=== PATIENT | female | born 1995 | race Caucasian/White ===

== ENCOUNTER 2018-01-26 11:06 | Emergency (ER) | payer OTHER ==
[~2018-01-26] VITALS: Ht 172.7 cm; Wt 89.8 kg
--- NOTE | 2018-01-26 12:00 | ED GU-Female ---
General Chief Complaint: -Female Stated Complaint: PELVIC PAIN/BLEEDING Nursing Triage Note: Pt c/o heavy vaginal bleeding that began last night. Pt states no period for four months prior to this. Pt is changing tampons every two hours. Pt c/o sharp pain on the R sided that is unlike period cramping. Pt also c/o unusual thoughts. Pt denies being suicidal but has been questioning whether pt "needs to be on this earth." Pt denies self harm or having a plan. Nursing Sepsis Screen: No Definite Risk Source: patient Exam Limitations: no limitations History of Present Illness Date Seen by Provider: Jan 26, 2018 Time Seen by Provider: 11:13 Initial Comments Patient is a 22-year-old female who was sent over to the emergency room by [facility] for complaints of heavy vaginal bleeding that started last night at 4:00. She reports that she's not had a menstrual cycle for 4 months prior to this but she's had several negative tests. She reports changing her tampon every 2 hours throughout the night and right lower quadrant pelvic pain. She also reports that she's had confusing thoughts that started last night and a sense of her not needing to be alive anymore. She denies being suicidal, homicidal, any thoughts of harming herself. But just thinks that she "doesn't need to be on this earth". Timing/Duration: yesterday Severity/Quality: sharp Location: suprapubic Radiation: none Sexual [place] History: single partner Associated Symptoms: denies symptoms Allergies and Home Medications Patient Home Medication List Home Medication List Reviewed: Yes Review of Systems Review of Systems Constitutional: see HPI; No chills, No fever Genitourinary: see HPI, other (vaginal bleeding) Psychiatric/Neurological: See HPI, Emotional Problems All Other Systemes Reviewed Negative Unless Noted: Yes Past Xavzjkg-Lamrxk-Ygacbc Hx Past Med/Social Hx: Reviewed Nursing Past Med/Soc Hx Patient Social History Alcohol Use: Denies Use Recreational Drug Use: No Smoking Status: Current Someday Smoker Type Used: Cigarettes 2nd Hand Smoke Exposure: Yes Recent Foreign Travel: No Contact w/Someone Who Travel: No Recent Infectious Disease Expo: No Recent Hopitalizations: No Past Medical History Surgeries: No Respiratory: No Cardiac: No Neurological: No Last Menstrual Period: Jan 25, 2018 Genitourinary: No Gastrointestinal: No Musculoskeletal: No Endocrine: No HEENT: No Cancer: No Psychosocial: Yes Anxiety Integumentary: No Blood Disorders: No Adverse Reaction/Blood Tranf: No Family Medical History Reviewed Nursing Family Hx Physical Exam Vital Signs Vital Signs - First Documented 01/26/18 11:13 Temp 97.6 Pulse 80 Resp 20 B/P (MAP) 130/88 (102) Pulse Ox 98 O2 Delivery Room Air Capillary Refill : Less Than 3 Seconds Height, Weight, BMI Height: 5'8.00" Weight: 198lbs. oz. 89.874098nx; BMI Method:Stated General Appearance: WD/WN, no apparent distress Cardiovascular: normal peripheral pulses, regular rate, rhythm, no edema, no gallop, no JVD, no murmur Respiratory: chest non-tender, lungs clear, normal breath sounds, no respiratory distress, no accessory muscle use, respiratory distress Gastrointestinal: normal bowel sounds, non tender, soft, no organomegaly, no pulsatile mass, abnormal bowel sounds Pelvic: normal external exam, normal adnexa, no cerv. motion tender, no masses , vaginal bleeding (minimal amount of vaginal bleeding coming from her cervix. Cervix is nonfriable. Normal appearing cervix. Exam was completed with assistance from Rashmi GRIFFIN.) Neurologic/Psychiatric: alert, normal mood/affect, oriented x 3 Skin: normal color, warm/dry Progress/Results/Core Measures Suspected Sepsis Recent Fever Within 48 Hours: No Infection Criteria Present: None New/Unexplained Altered Menta: No Sepsis Screen: No Definite Risk SIRS Temperature:97.6 Pulse: 80 Respiratory Rate: 20 Laboratory Tests 01/26/18 11:51: White Blood Count 8.0 Blood Pressure 130 /88 Mean: 102 Laboratory Tests 01/26/18 11:51: Platelet Count 219 01/26/18 12:08: Creatinine 0.80, Total Bilirubin 0.6 Results/Orders Lab Results Laboratory Tests Test 01/26/18 11:51 01/26/18 12:08 01/26/18 12:56 Range/Units White Blood Count 8.0 4.3-11.0 10^3/uL Red Blood Count 4.13 L 4.35-5.85 10^6/uL Hemoglobin 12.9 11.5-16.0 G/DL Hematocrit 38 35-52 % Mean Corpuscular Volume 92 80-99 FL Mean Corpuscular Hemoglobin 31 25-34 PG Mean Corpuscular Hemoglobin Concent 34 32-36 G/DL Red Cell Distribution Width 12.6 10.0-14.5 % Platelet Count 219 130-400 10^3/uL Mean Platelet Volume 10.8 H 7.4-10.4 FL Neutrophils (%) (Auto) 68 42-75 % Lymphocytes (%) (Auto) 23 12-44 % Monocytes (%) (Auto) 7 0-12 % Eosinophils (%) (Auto) 2 0-10 % Basophils (%) (Auto) 0 0-10 % Neutrophils # (Auto) 5.5 1.8-7.8 X 10^3 Lymphocytes # (Auto) 1.8 1.0-4.0 X 10^3 Monocytes # (Auto) 0.6 0.0-1.0 X 10^3 Eosinophils # (Auto) 0.2 0.0-0.3 10^3/uL Basophils # (Auto) 0.0 0.0-0.1 10^3/uL Serum Test, Qualitative NEGATIVE NEGATIVE Urine Color RED H Urine Clarity BLOODY H Urine pH 5 5-9 Urine Specific [place] 1.020 1.016-1.022 Urine Protein 3+ H NEGATIVE Urine Glucose (UA) NEGATIVE NEGATIVE Urine Ketones 1+ H NEGATIVE Urine Nitrite NEGATIVE NEGATIVE Urine Bilirubin NEGATIVE NEGATIVE Urine Urobilinogen NORMAL NORMAL MG/DL Urine Leukocyte Esterase 1+ H NEGATIVE Urine RBC (Auto) 5+ H NEGATIVE Urine RBC TNTC H /HPF Urine WBC 2-5 /HPF Urine Squamous Epithelial Cells 2-5 /HPF Urine Crystals NONE /LPF Urine Bacteria TRACE /HPF Urine Casts NONE /LPF Urine Mucus NEGATIVE /LPF Urine Culture Indicated NO Sodium Level 137 135-145 MMOL/L Potassium Level 3.5 L 3.6-5.0 MMOL/L Chloride Level 104 98-107 MMOL/L Carbon Dioxide Level 22 21-32 MMOL/L Anion Gap 11 5-14 MMOL/L Blood Urea Nitrogen 8 7-18 MG/DL Creatinine 0.80 0.60-1.30 MG/DL Estimat Glomerular Filtration Rate > 60 BUN/Creatinine Ratio 10 Glucose Level 90 70-105 MG/DL Calcium Level 9.4 8.5-10.1 MG/DL Corrected Calcium 9.2 8.5-10.1 MG/DL Total Bilirubin 0.6 0.1-1.0 MG/DL Aspartate Amino Transf (AST/SGOT) 21 5-34 U/L Alanine Aminotransferase (ALT/SGPT) 24 0-55 U/L Alkaline Phosphatase 73 40-136 U/L Total Protein 7.4 6.4-8.2 GM/DL Albumin 4.3 3.2-4.5 GM/DL Micro Results Microbiology 01/26/18 Genital Culture, Resulted Pending 01/26/18 TIFFANIE Preparation - Final, Resulted 01/26/18 Wet Prep - Final, Resulted My Orders Orders - ERNIE SINGH Cbc With Automated Diff (01/26/18 11:23) Cbc No Diff (01/26/18 11:23) Hcg,Qualitative Serum (01/26/18 11:23) Ua Culture If Indicated (01/26/18 11:23) Wet Prep (01/26/18 11:23) Neisseria Gonorrhea Swab (01/26/18 11:23) Genital Culture (01/26/18 11:23) Tiffanie Prep (01/26/18 11:23) Chlamydia Trachomatis Swab (01/26/18 11:23) Comprehensive Metabolic Panel (01/26/18 12:08) Vital Signs/I&O 01/26/18 13:47 Temp 97.6 Pulse 82 Resp 15 B/P (MAP) 128/88 (102) Pulse Ox 99 O2 Delivery Room Air Capillary Refill : Less Than 3 Seconds Blood Pressure Mean: 102 Progress Note : Time: 13:18 Progress Note I have seen and evaluated the patient. Cat from [facility] has seen and evaluated the patient. She reports to me that she thinks she can follow up on an outpatient basis. They have a plan in place which is her mother will stay with her tonight. Cat will check back in this evening and will have her follow-up on an outpatient basis tomorrow. I believe that the patient's vaginal bleeding is due to her menstrual cycle. She recently stopped taking her control 1 month ago and this is her first cycle that is not on control. She agrees with plans for discharge, plans for follow-up, return precautions were given. Departure Impression Primary Impression: Period disorder Additional Impression: No abnormality detected on mental health assessment Disposition: 01 HOME, SELF-CARE Condition: Stable/Unchanged Departure-Patient Inst. Decision time for Depature: 13:36 Referrals: NO,LOCAL PHYSICIAN (PCP) Primary Care Physician ESTRADA WHITTINGTON MD Patient Instructions: Menstrual Cramps (DC), Menstruation, OUTPT MENTAL HEALTH SERVICES Add. Discharge Instructions: Return back to the emergency room should your bleeding increase or if your required to change your tampon every hour.. Follow-up with [facility] as directed by Cat the screener. Follow-up with [facility] student health within 1 week for recheck. Return back to the emergency room for any thoughts of self-harm, suicidal ideations, or any other concerns as needed. You can reach the outpatient services at [phone] ([phone]) All discharge instructions reviewed with patient and/or family. Voiced understanding. ERNIE SINGH Jan 26, 2018 12:00
[2018-01-26 12:02] LABS: BASOPHILS % (AUTO) 0 % (0-10); EOSINOPHILS # (AUTO) 0.2 10^3/uL (0.0-0.3); EOSINOPHILS % (AUTO) 2 % (0-10); HEMATOCRIT 38 % (35-52); HEMOGLOBIN 12.9 G/DL (11.5-16.0); LYMPHOCYTES # (AUTO) 1.8 X 10^3 (1.0-4.0); LYMPHOCYTES % (AUTO) 23 % (12-44); MEAN CORPUSCULAR HEMOGLOBIN 31 PG (25-34); MEAN CORPUSCULAR HGB CONC 34 G/DL (32-36); MEAN CORPUSCULAR VOLUME 92 FL (80-99); MEAN PLATELET VOLUME 10.8 FL (7.4-10.4); MONOCYTES # (AUTO) 0.6 X 10^3 (0.0-1.0); MONOCYTES % (AUTO) 7 % (0-12); NEUTROPHILS # (AUTO) 5.5 X 10^3 (1.8-7.8); NEUTROPHILS % (AUTO) 68 % (42-75); PLATELET COUNT 219 10^3/uL (130-400); RED BLOOD COUNT 4.13 10^6/uL (4.35-5.85); RED CELL DISTRIBUTION WIDTH 12.6 % (10.0-14.5)
[2018-01-26 12:26] LABS: ALANINE AMINOTRANSFERASE 24 U/L (0-55); ALBUMIN 4.3 GM/DL (3.2-4.5); ALKALINE PHOSPHATASE 73 U/L (40-136); BILIRUBIN,TOTAL 0.6 MG/DL (0.1-1.0); BUN/CREATININE RATIO 10; CALCIUM 9.4 MG/DL (8.5-10.1); CARBON DIOXIDE 22 MMOL/L (21-32); CHLORIDE 104 MMOL/L (98-107); GFR ESTIMATED > 60; GLUCOSE 90 MG/DL (70-105); POTASSIUM 3.5 MMOL/L (3.6-5.0); SODIUM 137 MMOL/L (135-145); TOTAL PROTEIN 7.4 GM/DL (6.4-8.2)
[2018-01-26 12:36] LABS: BILIRUBIN,URINE NEGATIVE (NEGATIVE); CLARITY,URINE BLOODY; COLOR,URINE RED; GLUCOSE, URINE (UA) NEGATIVE (NEGATIVE); KETONES,URINE 1+ (NEGATIVE); LEUKOCYTE ESTERASE ,URINE 1+ (NEGATIVE); NITRITE,URINE NEGATIVE (NEGATIVE); PH,URINE 5 (5-9); PROTEIN,URINE 3+ (NEGATIVE); UROBILINOGEN,URINE NORMAL (NORMAL)
[2018-01-26 13:12] LABS: RBC,URINE TNTC /HPF
[2018-01-26 13:13] LABS: BACTERIA,URINE TRACE /HPF
[2018-01-26 13:47] VITALS: BP 128/88
[2018-02-01] MEDS ORDERED: CEPH-507 PO (10:45)
== END 2018-01-26 13:45 | disposition home or self-care (01) ==
LOC: ER 11:10
DX: N92.6 Irregular menstruation, unspecified (principal); F41.9 Anxiety disorder, unspecified; F17.210 Nicotine dependence, cigarettes, uncomplicated
CPT/HCPCS: 36415; 80053; 81000; 84703; 85025; 85027; 87070; 87077; 87210; 87491; 87591; 99284